=== PATIENT | female | born 1965 | race Caucasian/White ===

== ENCOUNTER → 2018-04-04 | Outpatient (CLI) | payer BC ==
[2018-04-04 12:48] LABS: BASO # 0.1 10^3/uL (0.0-0.2); BASO % 0.7 % (0.0-1.0); EOS # 0.3 10^3/uL (0.0-0.50); EOS % 4.3 % (0.0-3.0); HEMATOCRIT 45.9 % (36.0-47.0); HEMOGLOBIN 15.3 g/dl (12.0-15.5); IMMATURE GRANULOCYTE % 0.7 % (0-3.0); LYMPH # 2.2 10^3/uL (1.5-4.5); MEAN CORPUSCULAR HEMOGLOBIN 29.2 pg (27.0-33.0); MEAN CORPUSCULAR HGB CONC 33.3 g/dl (32.0-36.5); MEAN CORPUSCULAR VOLUME 87.6 fl (80.0-96.0); MONO # 0.7 10^3/uL (0.0-0.8); MONO % 9.7 % (0.0-5.0); NEUTROPHILS # 4.2 10^3/uL (1.8-7.7); NEUTROPHILS % 55.6 % (36.0-66.0); PLATELET COUNT, AUTOMATED 323 10^3/uL (150-450); RED BLOOD COUNT 5.24 10^6/uL (4.00-5.40); RED CELL DISTRIBUTION WIDTH 14.2 % (11.5-14.5); WHITE BLOOD COUNT 7.5 10^3/uL (4.0-10.0)
[2018-04-04 13:30] LABS: FOLLICLE STIMULATING HORMONE 46.4 mIU/mL; LUTEINIZING HORMONE 19.5 mIU/mL
[2018-04-04 13:37] LABS: THYROID STIMULATING HORMONE 0.937 uIU/ML (0.358-3.740)
[2018-04-04 13:37] LABS: FREE T4 1.09 NG/DL (0.76-1.46)
== END ==
LOC: M WUC 10:27
DX: N95.0 Postmenopausal bleeding (principal)
CPT/HCPCS: 83001

== ENCOUNTER → 2018-08-23 | Outpatient (CLI) | payer BC ==
--- NOTE | 2018-08-23 09:59 | REP ---
LEFT HIP/AP PELVIS, THREE VIEWS: HISTORY: Pain. There is no acute fracture or dislocation. There is mild and moderate narrowing of the right and left hip joint spaces respectively. Osteophytes are present on the acetabulum. IMPRESSION: Degenerative change as described above. Electronically Signed by Bull Baron MD 08/23/2018 10:02 A
== END ==
LOC: M WUC 08:46
PROVIDERS: ATTEND Physician Assistant
DX: M25.552 Pain in left hip (principal)

== ENCOUNTER → 2018-08-23 | Outpatient (REF) | payer BC | LOC: M LAB REF 11:28 | PROVIDERS: ATTEND Physician Assistant | DX: R10.2 Pelvic and perineal pain (principal) ==

== ENCOUNTER 2018-09-18 20:21 | Emergency (ER) | payer BC ==
[~2018-09-18] VITALS: Ht 160 cm; Wt 84.1 kg
[2018-09-18] MEDS ORDERED: FURO20TA2 (20:33)
[2018-09-18] MEDS ORDERED: CYCL10TA (20:33)
[2018-09-18] MEDS ORDERED: ESOM40CA35 (20:33)
[2018-09-18] MEDS ORDERED: NORCO 5/325MG TABLET (BULK FOR ED) PO ONE (22:00)
[2018-09-18] MEDS ORDERED: NORCOTAB PO ×2 (22:02→22:04)
[2018-09-18 22:22] VITALS: BP 125/69
--- NOTE | 2018-09-19 02:16 | REP ---
Clinical: Trauma/injury left ankle Technique: AP, lateral, bilateral oblique views. Findings: No acute fracture or dislocation. Skeletal structures and joint spaces are intact and normal. Ankle mortise appears stable. No subcutaneous emphysema or radiodense foreign body. Impression: Normal left ankle radiograph series. Electronically Signed by Alonso Galvez MD 09/19/2018 02:07 A
== END 2018-09-18 23:15 | disposition home or self-care (01) ==
LOC: M ED 20:21
DX: S93.401A Sprain of unspecified ligament of right ankle, initial encounter (principal); X50.1XXA Overexertion from prolonged static or awkward postures, initial encounter; Y92.009 Unspecified place in unspecified non-institutional (private) residence as the place of occurrence of the external cause

== ENCOUNTER → 2019-01-01 | Outpatient (CLI) | payer BC ==
[~2019-01-01] MED LIST: CYCL10TA; ESOM40CA35; FURO20TA2; HYDR-3715 PO; ISOVUE-370 76% 100ML VIAL (Q9967) As Ordered ONE; READI-CAT 2 As Ordered ONE
--- NOTE | 2019-01-01 15:29 | REP ---
REASON FOR EXAM: Left lower quadrant pain. COMPARISON EXAMINATION: 01/06/2002 CONTRAST TODAY: 100 mL Isovue 370. A few scattered lung base patchy opacities have developed since the last examination, likely subsegmental atelectatic changes. There are no pleural or pericardial effusions. There is a tiny centimeter sized focal area of decreased density seen in the posterior segment of the right lobe of the liver having slightly higher than water Hounsfield unit readings likely a tiny hepatic cyst. There are no enhancing hepatic lesions. The gallbladder, spleen, pancreas, left adrenal gland, and right kidney are unremarkable. There is a tiny nonobstructing 5 mm sized calculus in the inferior pole of the left kidney, which a represents change from the prior exam. There is an oval-shaped 2 cm sized nodule in the right adrenal gland which represents a change from prior exam. This has consistently high Hounsfield unit readings, however, there are no precontrast images to review. The abdominal aorta and para-aortic regions are within normal limits. No free fluid or free air is seen in the abdomen. The bowel loops and their mesenteries are within normal limits. CT PELVIS: The bowel loops and their mesenteries are within normal limits. There is no mass or adenopathy. There is no free fluid or free air. Bone window technique throughout the exam shows spinal degenerative changes. IMPRESSION: 1. Likely small simple hepatic cyst, as described above. 2. Nonobstructing left nephrolith, as described above. 3. Likely benign right adrenal gland nodule, however, precontrast imaging recommended for accurate assessment of Hounsfield unit readings. 4. Possible uterine enlargement, but difficult to evaluate by CT. Consider pelvic ultrasound. 5. Likely scattered areas of focal subsegmental atelectatic change in the lung bases. 6. Other findings as described above. Electronically Signed by Quirino Sahni DO 01/01/2019 04:53 P
== END ==
LOC: M RAD 09:37
PROVIDERS: ATTEND Physician Assistant
DX: N20.0 Calculus of kidney (principal)
CPT/HCPCS: 74177; Q9967

== ENCOUNTER 2019-11-19 03:33 | Emergency (ER) | payer BC ==
[~2019-11-19] VITALS: Ht 162.6 cm; Wt 84.1 kg
[~2019-11-19 03:33] MED LIST changes: -ISOVUE-370 76% 100ML VIAL (Q9967) As Ordered ONE; -READI-CAT 2 As Ordered ONE
[2019-11-19] MEDS ORDERED: AZEL1SPR3 (03:40)
[2019-11-19] MEDS ORDERED: NEXI40CA (03:40)
[2019-11-19] MEDS ORDERED: PROG1CAP9 (03:40)
[2019-11-19] MEDS ORDERED: ONDANSETRON 4MG/2ML VIAL (J2405) IV ONE ×2 (03:45→04:45)
[2019-11-19] MEDS ORDERED: KETOROLAC 30 MG/ML VIAL (J1885) IV ONE (03:45)
[2019-11-19 04:10] LABS: BASO # 0.1 10^3/uL (0.0-0.2); BASO % 0.7 % (0.0-1.0); EOS # 0.3 10^3/uL (0.0-0.5); EOS % 3.5 % (0.0-3.0); HEMATOCRIT 46.1 % (36.0-47.0); LYMPH # 2.4 10^3/uL (1.5-5.0); LYMPH % 29.6 % (24.0-44.0); MEAN CORPUSCULAR HEMOGLOBIN 28.8 pg (27.0-33.0); MEAN CORPUSCULAR HGB CONC 32.5 g/dl (32.0-36.5); MEAN CORPUSCULAR VOLUME 88.5 fl (80.0-96.0); MONO # 0.8 10^3/uL (0.0-0.8); MONO % 10.1 % (0.0-5.0); NEUTROPHILS # 4.6 10^3/uL (1.5-8.5); NEUTROPHILS % 55.6 % (36.0-66.0); PLATELET COUNT, AUTOMATED 338 10^3/uL (150-450); RED BLOOD COUNT 5.21 10^6/uL (4.00-5.40); WHITE BLOOD COUNT 8.2 10^3/uL (4.0-10.0)
[2019-11-19] MEDS: MORPHINE 4 MG/ML 1ML VIAL/SYRINGE (J2270) IV PRN ×2 (04:51→06:17)
[2019-11-19 05:08] LABS: ALBUMIN 3.7 GM/DL (3.2-5.2); BILIRUBIN,DIRECT 0.1 MG/DL (0.0-0.2); BILIRUBIN,TOTAL 0.3 MG/DL (0.2-1.0); TOTAL PROTEIN 7.2 GM/DL (6.4-8.2)
--- NOTE | 2019-11-19 05:34 | REPVR ---
PROCEDURE INFORMATION: Exam: CT Abdomen And Pelvis Without Contrast Exam date and time: 11/19/2019 5:11 AM Age: 54 years old Clinical indication: Abdominal pain; Additional info: Left sided flank pain TECHNIQUE: Imaging protocol: Computed tomography of the abdomen and pelvis without contrast. Radiation optimization: All CT scans at this facility use at least one of these dose optimization techniques: automated exposure control; mA and/or kV adjustment per patient size (includes targeted exams where dose is matched to clinical indication); or iterative reconstruction. COMPARISON: CT ABD/PEL W/IV ORAL CONTRAS 01/01/2019 11:57 AM FINDINGS: Lungs: Mild linear atelectasis in the lung bases. Liver: Subtle ill-defined hypodense lesion in the right hepatic lobe measuring 15 mm. Series 201, image 42. Gallbladder and bile ducts: Normal. No calcified stones. No ductal dilation. Pancreas: Normal. No ductal dilation. Spleen: Normal. No splenomegaly. Adrenals: Benign-appearing low-density nodule in the right adrenal gland measuring 2.1 x 1.4 cm. Left adrenal gland is unremarkable. Kidneys and ureters: No right hydronephrosis. Mild left hydronephrosis. Stone in the left proximal left ureter measuring 4 x 4 x 9 mm. Stomach and bowel: Mild colonic diverticulosis without diverticulitis. Copious stool in the colon. No abnormal bowel dilatation. No abnormal bowel wall thickening. Appendix: The appendix is not seen. However, there is no evidence of appendicitis. Intraperitoneal space: Unremarkable. No free air. No significant fluid collection. Vasculature: No aortic aneurysm. Mild calcified atherosclerotic disease. Multiple phleboliths in the pelvis. Lymph nodes: Unremarkable. No enlarged lymph nodes. Bladder: Unremarkable as visualized. Reproductive: Uterus is normal. Bones/joints: Mild degenerative spine. No acute fracture. Soft tissues: Unremarkable. IMPRESSION: 1. Acute obstructive left uropathy with proximal ureteral stone. 2. Subtle ill-defined hypodense lesion in the right hepatic lobe. No change from prior. Suspect cyst. No follow-up is necessary. 3. Benign-appearing nodule in the right adrenal gland. Consistent with adenoma. No follow-up is necessary. 4. Additional findings as described. Electronically signed by: Brittany Pepe On 11/19/2019 05:33:54 AM
[2019-11-19] MEDS ORDERED: FLOM0.4C39 PO (06:39)
[2019-11-19] MEDS ORDERED: PERC5TAB12 PO (06:39)
[2019-11-19] MEDS ORDERED: TAMSULOSIN 0.4 MG CAP PO ONE (06:45)
[2019-11-19] MEDS ORDERED: CIPR-249 PO (09:05)
[2019-11-19 09:13] VITALS: BP 112/66
[2019-11-19] MEDS ORDERED: PERCOCET 5MG/325MG TAB PO ONE (09:15)
== END 2019-11-19 09:15 | disposition home or self-care (01) ==
LOC: M ED 03:33
DX: N20.1 Calculus of ureter (principal); N13.9 Obstructive and reflux uropathy, unspecified; K76.89 Other specified diseases of liver; E27.9 Disorder of adrenal gland, unspecified; Z87.442 Personal history of urinary calculi; Z79.899 Other long term (current) drug therapy; Z88.0 Allergy status to penicillin; Z88.2 Allergy status to sulfonamides; Z88.8 Allergy status to other drugs, medicaments and biological substances; Z91.040 Latex allergy status; Z91.030 Bee allergy status
CPT/HCPCS: 74176; 80047; 80076; 81001; 83690; 85025; 87086; 96374; 96375; 96376; 99284; J1885; J2270; J2405

== ENCOUNTER 2019-11-26 14:21 | Day surgery (SDC) | payer BC ==
[~2019-11-26] VITALS: Ht 162.6 cm; Wt 108.9 kg
[~2019-11-26 14:21] MED LIST changes: +AZEL1SPR3; +CIPR-249 PO; +FLOM0.4C39 PO; +NEXI40CA; +PERC5TAB12 PO; +PROG1CAP9
[2019-11-26] MEDS ORDERED: CVS1CAP2 PO (14:51)
[2019-11-26] MEDS ORDERED: COLA100C5 PO (14:51)
[2019-11-26] MEDS ORDERED: ADV100INH INH (14:51)
[2019-11-26] MEDS ORDERED: MAGN200T PO (14:51)
[2019-11-26] MEDS ORDERED: CALT1TAB PO (14:51)
[2019-11-26] MEDS ORDERED: OMEP20TA9 PO (14:51)
[2019-11-26] MEDS ORDERED: ALL10TAB2 PO (14:51)
[2019-11-26] MEDS ORDERED: CIPROFLOXACIN 400 MG in IV 1 EA IV ONE (15:00)
[2019-11-26] MEDS ORDERED: CONRAY-60 60% 50ML VIAL (Q9961) As Ordered ONE (16:16)
[2019-11-26] MEDS ORDERED: propofoL 200 MG/20 ML VIAL As Ordered ONE (17:35)
[2019-11-26] MEDS ORDERED: LIDOCAINE 2% INJ 100 MG/5 ML SDV (FOR ANES.) As Ordered ONE (17:36)
[2019-11-26] MEDS ORDERED: MIDAZOLAM INJ 2 MG/2 ML VIAL (J2250) As Ordered ONE (17:37)
[2019-11-26] MEDS ORDERED: fentaNYL 100 MCG/2 ML INJECTION (J3010) As Ordered ONE (17:57)
[2019-11-26] MEDS ORDERED: dexameTHASONE 4 MG/ML 1ML VIAL (J1100) As Ordered ONE (18:07)
[2019-11-26] MEDS ORDERED: ONDANSETRON 4MG/2ML VIAL (J2405) As Ordered ONE ×2 (18:07→18:51)
[2019-11-26] MEDS ORDERED: oxyCODONE 5MG TAB As Ordered ONE (18:52)
[2019-11-26] MEDS ORDERED: ACETAMINOPHEN 1000MG 100ML IV BTL (OFIRMEV) (J0131 PER 10MG) As Ordered ONE (18:52)
--- NOTE | 2019-11-26 18:53 | REP ---
Clinical: Retrograde pyelogram. Technique: Intraoperative fluoroscopic imaging. Findings: Images demonstrate satisfactory left ureteral stent placement. Total fluoroscopic time 20 seconds. Impression: Satisfactory left ureteral stent placement. Electronically Signed by Alonso Galvez MD 11/26/2019 06:44 P
[2019-11-26] MEDS ORDERED: HYDROMORPHONE HCL 0.5 MG/ 0.5 ML SYRINGE (J1170 PER 1) IV PRN ×2 (19:00→20:15)
[2019-11-26] MEDS ORDERED: ONDANSETRON 4MG/2ML VIAL (J2405) IV PRN ×2 (19:00→20:15)
[2019-11-26] MEDS ORDERED: oxyCODONE 5MG TAB PO PRN ×2 (19:00→20:15)
[2019-11-26] MEDS ORDERED: LR 1,000 ML IV SCH ×2 (19:00→20:15)
[2019-11-26] MEDS ORDERED: fentaNYL 100 MCG/2 ML INJECTION (J3010) IV PRN ×2 (19:00→20:15)
[2019-11-26 19:46] VITALS: BP 139/88
[2019-11-26] MEDS ORDERED: ACETAMINOPHEN *IV* 1,000 MG in IV 1 EA IV ONE (20:00)
[2019-11-26] MEDS ORDERED: PERCOCET 5MG/325MG TAB PO PRN (20:01)
[2019-11-26] MEDS ORDERED: oxyBUTYnin 5 MG TAB PO PRN (20:01)
--- NOTE | 2019-11-27 08:22 | RO ---
DATE OF PROCEDURE: 11/26/2019 PREPROCEDURE DIAGNOSIS: Obstructing left ureteral stone. POSTPROCEDURE DIAGNOSIS: Obstructing left ureteral stone. PROCEDURE: Cystoscopy, left ureteroscopy with laser lithotripsy and basket extraction of stones, left retrograde pyelogram with intraoperative interpretation of images, left ureteral stent placement. SURGEON: Dr. Cruz Millard REEL FED PRINTER: None. ANESTHESIA: General. OPERATIVE INDICATIONS: This is a 54-year-old female who was found to have an approximately 9.0 mm obstructing proximal left ureteral stone. She was brought to the operating room for treatment. DESCRIPTION OF PROCEDURE: The patient was brought to the operating room, and general anesthesia was induced. Prophylactic antibiotics were infused. She was then placed in the dorsal lithotomy position and prepped and draped in the usual sterile fashion. A rigid cystoscope was inserted into the urethral meatus and advanced into the bladder. A guidewire was advanced up the left collecting system. I then went up the left collecting system with a short semirigid ureteroscope and within the proximal ureter the stone was seen. The stone was fragmented into smaller pieces using a 200 micron laser fiber then all the fragments were removed using a basket. I then examined the more proximal ureter and the kidney with a flexible ureteroscope and no stones were seen inside the left kidney. I then shot a retrograde pyelogram which was notable for moderate left hydronephrosis and no extravasation. I then looked through the ureteroscope and there were no additional stones seen inside the ureter. I then utilized the wire to advance a 6 Latvian x 22-32 cm JJ ureteral stent into the left collecting system. The wire was removed and there was adequate curls of the stent in the left renal pelvis and in the bladder. The bladder was then emptied of all fluids, and this marked the conclusion of the procedure. The patient was then taken out dorsal lithotomy position, awakened from anesthesia and transferred from the recovery room in stable condition. ESTIMATED BLOOD LOSS: 5 mL. COMPLICATIONS: None. SPECIMENS: Kidney stone fragments. PLAN: The patient will followup in the clinic in approximately 1-2 weeks for stent removal.
== END 2019-11-26 20:44 | disposition home or self-care (01) ==
LOC: M SDC 14:21
PROVIDERS: ATTEND Urology
DX: N13.2 Hydronephrosis with renal and ureteral calculous obstruction (principal); J45.909 Unspecified asthma, uncomplicated; K21.9 Gastro-esophageal reflux disease without esophagitis; Z79.899 Other long term (current) drug therapy; Z79.51 Long term (current) use of inhaled steroids; Z91.013 Allergy to seafood; Z88.0 Allergy status to penicillin; Z91.041 Radiographic dye allergy status; Z88.2 Allergy status to sulfonamides; Z88.6 Allergy status to analgesic agent; Z88.1 Allergy status to other antibiotic agents
CPT/HCPCS: 52356; 74420; 82365; 88300; C1769; C2617; J0131; J0744; J1100; J2250; J2405; J3010; Q9961

== ENCOUNTER → 2019-12-07 | Outpatient (REF) | payer BC ==
[~2019-12-07] MED LIST changes: +ADV100INH INH; +ALL10TAB2 PO; +CALT1TAB PO; +COLA100C5 PO; +CVS1CAP2 PO; +MAGN200T PO; +OMEP20TA9 PO
== END ==
LOC: M SMT 16:46
PROVIDERS: ATTEND Urology
DX: N39.0 Urinary tract infection, site not specified (principal)

== ENCOUNTER 2021-06-01 14:19 | Inpatient (IN) | payer BC ==
[~2021-06-01] VITALS: Ht 162.6 cm; Wt 84.1 kg
[~2021-06-01 14:19] MED LIST changes: +CYCL-707; -CYCL10TA; -FURO20TA2; +FURO20TA2 PO; +OMEP20TA2 PO; -OMEP20TA9 PO
[2021-06-01] MEDS ORDERED: methylPREDNISolone 125MG 2ML VIAL IV ONE (15:05)
[2021-06-01 15:23] LABS: HEMATOCRIT 43.1 % (36.0-47.0); HEMOGLOBIN 13.9 g/dl (12.0-15.5); MEAN CORPUSCULAR HEMOGLOBIN 28.3 pg (27.0-33.0); MEAN CORPUSCULAR HGB CONC 32.3 g/dl (32.0-36.5); MEAN CORPUSCULAR VOLUME 87.6 fl (80.0-96.0); PLATELET COUNT, AUTOMATED 203 10^3/uL (150-450); RED BLOOD COUNT 4.92 10^6/uL (4.00-5.40); WHITE BLOOD COUNT 4.5 10^3/uL (4.0-10.0)
[2021-06-01 15:28] LABS: VENOUS BASE EXCESS 1.5 (-2.0-2.0); VENOUS HCO3 25.7 MEQ/L (23.0-27.0); VENOUS PARTIAL PRESSURE CO2 39.2 mmHg (38.0-50.0); VENOUS PARTIAL PRESSURE O2 51.3 mmHg (30.0-50.0); VENOUS PH 7.435 UNITS (7.330-7.430); VENOUS STANDARD HCO3 25.6 MEQ/L; VENOUS TOTAL CO2 26.9 MEQ/L (24.0-28.0)
[2021-06-01 15:33] LABS: INR 0.95; PROTHROMBIN TIME 13.1 SECONDS (12.7-14.5)
[2021-06-01 15:34] LABS: PARTIAL THROMBOPLASTIN TIME 44.4 SECONDS (25.9-37.0)
[2021-06-01 15:37] LABS: D-DIMER QUANT 901.07 ng/ml (<500)
[2021-06-01 15:52] LABS: ALBUMIN 2.9 GM/DL (3.2-5.2); ALT/SGPT 45 U/L (12-78); BILIRUBIN,TOTAL 0.4 MG/DL (0.2-1.0); BLOOD UREA NITROGEN 16 MG/DL (7-18); C REACTIVE PROTEIN QUANTITATIV 3.26 MG/DL (0.00-0.30); CARBON DIOXIDE LEVEL 28 MEQ/L (21-32); CHLORIDE LEVEL 103 MEQ/L (98-107); CK-MB VALUE MASS < 1.0 NG/ML (<3.6); CPK CREATINE PHOSPHOKINASE 210 U/L (26-192); FERRITIN 509 NG/ML (8-252); GLOMERULAR FILTRATION RATE 54.9 (>51); GLUCOSE, FASTING 121 MG/DL (70-100); LDH LACTATE DEHYDROGENASE 487 U/L (84-246); MB/CK RELATIVE INDEX 0.48 (< OR =4); SODIUM LEVEL 137 MEQ/L (136-145); TOTAL PROTEIN 6.6 GM/DL (6.4-8.2); TROPONIN I < 0.02 NG/ML (< 0.10)
--- NOTE | 2021-06-01 16:01 | REP ---
INDICATION: Coronavirus workup. COMPARISON: 05/08/2013 a portable exam and the latest prior TECHNIQUE: Portable FINDINGS: The technique utilized in obtaining the radiograph has magnified the cardiac silhouette and accentuated the interstitial markings. Patchy bilateral airspace opacities have developed particularly on the left. The pleural angles are sharp the heart is not enlarged. The osseous structures are stable and intact IMPRESSION: Patchy bilateral airspace opacities consistent with pneumonia. Consider PA and lateral views of the chest. <Electronically signed by Quirino Sahni > 06/01/21 [id number]
[2021-06-01 16:10] LABS: BASOPHILS 1 % (0-1); LYMPHOCYTES 19 % (16-44); MONOCYTES 4 % (0-5); NEUTROPHILS 76 % (28-66); PLATELET ESTIMATE NORMAL (NORMAL)
[2021-06-01] MEDS ORDERED: LevoFLOXacin IV 750 MG in IV 1 EA IV ONE (16:30)
[2021-06-01] MEDS ORDERED: CITA20TA6 PO (17:26)
[2021-06-01] MEDS ORDERED: HOME MED LIST COMPLETE! XX SCH (17:30)
[2021-06-01] MEDS ORDERED: ALBUTEROL 90 MCG/ACT 8GM HFA INHALER INH PRN (17:30)
--- NOTE | 2021-06-01 17:44 | HPEPDOC ---
General Date of Admission Jun 01, 2021 Date of Service: Jun 01, 2021 Chief Complaint The patient is a 55-year-old female admitted with a reason for visit of Covid Symptoms. Source: Patient History of Present Illness Mrs. Lozano is a 55-year-old female with asthma who presents with malaise, fever, and shortness of breath. She received the single dose Anirudh & Anirudh vaccine. Her mother was recently positive for Covid. On 05/26/2021, patient started to feel ill. She went to urgent care and was tested positive for Covid. She had fever, shortness of breath with exertion, dry cough, headache, and loss of taste and smell. Her appetite was poor. She also had diarrhea which ranged from watery to semisolid. She would have 2-3 bowel movements a day. Symptoms were worsening and she came into the ED for evaluation. While here, she has been afebrile but she did become hypoxic with exertion. When sitting up, she dropped to the high 80s and with ambulation she drops into the 70s. Chest x-ray suggests bilateral pneumonia. Due to patient's allergies to penicillins, patient was given levofloxacin. Patient will be admitted for Covid pneumonia with exertional hypoxia Home Medications Scheduled Cetirizine HCl (All Day Allergy) 10 Mg Tablet, 10 MG PO DAILY, (Reported) Citalopram Hydrobromide (Citalopram HBr) 20 Mg Tablet, 20 MG PO DAILY, (Reported) Omeprazole (Omeprazole) 20 Mg Tablet.dr, 20 MG PO DAILY, (Reported) Salmeterol/Fluticasone (Advair 100-50 Diskus) 1 Each Blst.w.dev, 2 PUFF INH BID, (Reported) Miscellaneous Medications Furosemide (Furosemide) 20 Mg Tab, (Reported) Allergies Coded Allergies: Penicillins (Verified Allergy, Severe, 11/19/19) SEAFOOD (Verified Allergy, Severe, 11/19/19) Sulfa (Sulfonamide Antibiotics) (Verified Allergy, Severe, 11/19/19) nitrofurantoin (Verified Allergy, Severe, 11/19/19) Contrast Media (Verified Allergy, Unknown, 09/18/18) aspirin (Verified Allergy, Unknown, 11/19/19) Past Medical History Medical History 1. Asthma 2. GERD 3. Seasonal allergies 4. Nephrolithiasis 5. Depression Surgical History 1. Appendectomy 2. Tonsillectomy 3. Ulnar nerve repair 4. Laminectomy 5. Tube ligation Family History Father: History of hypertension Mother: History of hypertension Social History * Smoker: Denies Alcohol: occationally Drugs: denies A-FIB/CHADSVASC A-FIB History Current/History of A-Fib/PAF?: No Review of Systems Constitutional: Reports: Fever, Malaise; Denies: Chills Eyes: Denies: Vision change ENT: Reports: Head Aches; Denies: Sore Throat Skin: Denies: Rash Pulmonary: Reports: Dyspnea (Worse with exertion), Cough (Dry) Cardiovascular: Denies: Chest Pain Gastrointestinal: Reports: Diarrhea, Other Symptoms (Loss of taste and poor appetite); Denies: Nausea, Abdominal Pain Genitourinary: Denies: Dysuria Hematologic: Denies: Bruising Neurological: Denies: Numbness Psych: Reports: Depression Physical Examination General Exam: Positive: Alert, Cooperative Eye Exam: Positive: EOMI; Negative: Sclera icteric ENT Exam: Positive: Atraumatic Neck Exam: Positive: Supple Chest Exam: Positive: Other (Coarse breath sound) Heart Exam: Positive: Tachycardic, Regular Rhythm Abdomen Exam: Positive: Normal bowel sounds, Soft; Negative: Tenderness Extremity Exam: Negative: Edema Neuro Exam: Positive: Normal Speech Psych Exam: Positive: Mental status NL, Mood NL Vital Signs Vital Signs Date Time Temp Pulse Resp B/P (MAP) Pulse Ox O2 Delivery O2 Flow Rate FiO2 06/01/21 14:20 97.0 104 26 128/67 (87) 90 Room Air Laboratory Data Labs 24H Laboratory Tests 2 06/01/21 15:09: Neutrophils (%) (Auto) , Nucleated Red Blood Cells % (auto) 0.0, Neutrophils 76H, Lymphocytes (Manual) 19, Monocytes (Manual) 4, Basophils (Manual) 1, Platelet Estimate NORMAL, Prothrombin Time 13.1, Prothromb Time International Ratio 0.95, Activated Partial Thromboplast Time 44.4H, Fibrinogen 509H, D-Dimer, Quantitative 901.07H, Blood Gas Bicarbonate Standard 25.6, Venous Blood pH 7.435H, Venous Blood Partial Pressure CO2 39.2, Venous Blood Partial Pressure O2 51.3H, Venous Blood Total Carbon Dioxide 26.9, Venous Blood HCO3 25.7, Venous Blood Oxygen Saturation 87.0H, Venous Blood Base Excess 1.5, Anion Gap 6L, Glomerular Filtration Rate 54.9, Lactic Acid Level 1.2, Calcium Level 8.0L, Magnesium Level 2.0, Ferritin 509H, Total Bilirubin 0.4, Aspartate Amino Transf (AST/SGOT) 56H, Alanine Aminotransferase (ALT/SGPT) 45, Alkaline Phosphatase 55, Lactate Dehydrogenase 487H, Total Creatine Kinase 210H, Creatine Kinase MB < 1.0, Creatine Kinase MB Relative Index 0.48, Troponin I < 0.02, C-Reactive Protein, Quantitative 3.26H, Total Protein 6.6, Albumin 2.9L, Albumin/Globulin Ratio 0.8L CBC/BMP Laboratory Tests 06/01/21 15:09 Microbiology Microbiology 06/01/21 Blood Culture, Received Pending 06/01/21 Blood Culture, Received Pending Assessment/Plan Mrs. Lozano is a 55-year-old female with asthma who presents with malaise, fever, and shortness of breath. Despite the single dose Anirudh & Anirudh vaccine, patient still had Covid pneumonia. Patient will be given remdesivir, steroids, and antibiotics. Will obtain procalcitonin. Plan / VTE VTE Prophylaxis Ordered?: Yes Plan Plan 1. Covid pneumonia Patient has hypoxia with exertion Patient risk factors include asthma Start remdesivir and dexamethasone Levofloxacin day 1 If renal function worsens, please switch levofloxacin from daily to every other day 2. Asthma Continue Advair As needed albuterol 3. Seasonal allergies Continue cetirizine 4. GERD Continue omeprazole 5. DVT prophylaxis Lovenox Patient has allergies to aspirin Disposition: Pending clinical improvement JASMINE HEWITT DO Jun 01, 2021 17:43
[2021-06-01 18:21] LABS: NT-PRO BNP 18 PG/ML (<125)
[2021-06-01] MEDS: ADVAIR HFA 45/21MCG INHALER INH SCH ×2 (20:00→21:10)
[2021-06-01 21:13] VITALS: BP 132/86
[2021-06-01] MEDS ORDERED: REMDESIVIR 200 MG in NS 250 ML IV ONE (22:00)
[2021-06-01] MEDS ORDERED: SODIUM CHLORIDE 0.9% INJ 10 ML SYR IV ONE (23:59)
[2021-06-02 00:10] LABS: APPEARANCE, URINE HAZY (CLEAR); BACTERIA, URINE AUTO 3+ (NEGATIVE); BILIRUBIN, URINE AUTO NEGATIVE (NEGATIVE); BLOOD, URINE BLOOD 1+ (NEGATIVE); COLOR, URINE YELLOW (YELLOW); GLUCOSE, URINE (UA) AUTO NEGATIVE (NEGATIVE); KETONE, URINE AUTO NEGATIVE (NEGATIVE); LEUKOCYTE ESTERASE, URINE AUTO NEGATIVE (NEGATIVE); MUCUS, URINE SMALL (NEGATIVE); NITRITE, URINE AUTO NEGATIVE (NEGATIVE); PROTEIN, URINE AUTO 3+ mg/dL (NEGATIVE); RBC, URINE AUTO 1 /HPF (0-3); SPECIFIC GRAVITY URINE AUTO 1.022 (1.002-1.035); SQUAMOUS EPITHELIAL CELL UR AU 1 /HPF (0-6); UROBILINOGEN, URINE AUTO 0.2 mg/dL (0.0-2.0); WBC, URINE AUTO 3 /HPF (0-3)
--- NOTE | 2021-06-02 04:57 | ECGEPIP ---
[facility] - ED Test Date: 2021-06-01 Pat Name: SAMANTHA GALLARDO Department: Room: - Gender: Female Assisted Living Executive Director: spencer : 1965 Requested By: Natanael Wayne Order Number: [id number] Reading MD: Lonnie Goncalves Measurements Intervals Hawley Rate: 92 P: 36 NE: 144 QRS: 28 QRSD: 80 T: 16 QT: 354 QTc: 437 Interpretive Statements Normal sinus rhythm Inferior infarct , age undetermined Low QRS complex voltage in the anterior leads Comparison tracing not on file Electronically Signed on 06-02-2021 4:57:26 EDT by Lonnie Goncalves
[2021-06-02 05:21] VITALS: BP 127/79
[2021-06-02 06:08] LABS: HEMATOCRIT 41.7 % (36.0-47.0); HEMOGLOBIN 13.3 g/dl (12.0-15.5); MEAN CORPUSCULAR HEMOGLOBIN 27.8 pg (27.0-33.0); MEAN CORPUSCULAR HGB CONC 31.9 g/dl (32.0-36.5); MEAN CORPUSCULAR VOLUME 87.2 fl (80.0-96.0); PLATELET COUNT, AUTOMATED 196 10^3/uL (150-450); RED BLOOD COUNT 4.78 10^6/uL (4.00-5.40); WHITE BLOOD COUNT 3.7 10^3/uL (4.0-10.0)
[2021-06-02 06:39] LABS: ALBUMIN 2.7 GM/DL (3.2-5.2); BILIRUBIN,DIRECT 0.1 MG/DL (0.0-0.2); BILIRUBIN,TOTAL 0.3 MG/DL (0.2-1.0); CALCIUM LEVEL 8.4 MG/DL (8.5-10.1); CREATININE FOR GFR 1.03 MG/DL (0.55-1.30); GLOMERULAR FILTRATION RATE 59.2 (>51); MAGNESIUM LEVEL 2.3 MG/DL (1.8-2.4); POTASSIUM SERUM 3.9 MEQ/L (3.5-5.1)
[2021-06-02 07:12] LABS: ATYPICAL LYMPH 2 % (0-5); LYMPHOCYTES 18 % (16-44); MONOCYTES 6 % (0-5); NEUTROPHILS 74 % (28-66)
[2021-06-02 07:13] LABS: PLATELET ESTIMATE NORMAL (NORMAL)
[2021-06-02 08:00] VITALS: O2SAT 92
[2021-06-02] MEDS: ADVAIR HFA 45/21MCG INHALER INH SCH ×2 (08:22→19:34)
[2021-06-02] MEDS: CETIRIZINE (ZyrTEC) 10 MG TAB PO SCH (09:09)
[2021-06-02] MEDS: OMEPRAZOLE 20 MG CAP PO SCH (09:09)
[2021-06-02] MEDS: CitaloPRAM (CeleXA) 20 MG TAB PO SCH (09:09)
[2021-06-02] MEDS: dexameTHASONE 4 MG/ML 1ML VIAL (J1100 PER 1MG) IV SCH (09:10)
[2021-06-02] MEDS: ENOXAPARIN 40MG/0.4ML SYRINGE (J1650 PER 10MG) SC SCH (09:10)
[2021-06-02 12:00] VITALS: O2SAT 92
--- NOTE | 2021-06-02 13:05 | IPN ---
PROGRESS NOTE DATE: 06/02/2021 SUBJECTIVE: Patient complains of generalized weakness, some shortness of breath with ambulation, saturating 87% on 3 liters nasal cannula. OBJECTIVE: VITAL SIGNS: Temperature is 95.4, pulse 63, sinus, respiratory rate is 18, blood pressure is 127/79, 93% on 4 liters nasal cannula. GENERAL: Awake, alert and oriented, no distress. CHEST: No use of respiratory accessory muscles or cyanosis. NECK: No JVD or thyromegaly. LUNGS: Diminished breath sounds, coarse rhonchi. HEART: S1 and S2, sinus. ABDOMEN: Soft, nontender and nondistended. Positive bowel sounds. EXTREMITIES: No pitting edema. LABORATORY DATA/IMAGING STUDIES/MICROBIOLOGY: Have been reviewed. ASSESSMENT AND PLAN: A 55-year-old with Coronavirus, asthma, reflux disease. CURRENT ISSUES: 1. Coronavirus pneumonia, currently with significant hypoxia requiring supplemental oxygen on Remdesivir and Dexamethasone and Levaquin day #2. 2. Asthma, compensated on Advair and Albuterol p.r.n. 3. Seasonal allergies, on cetirizine. 4. GERD, on Prilosec. MTDD
[2021-06-02 14:00] VITALS: BP 120/63
[2021-06-02 16:00] VITALS: O2SAT 91
[2021-06-02] MEDS ORDERED: LevoFLOXacin IV 750 MG in IV 1 EA IV SCH (18:00)
[2021-06-02] MEDS: REMDESIVIR 100 MG in NS 250 ML IV SCH (19:58)
[2021-06-02 20:00] VITALS: BP 114/67; O2SAT 92
[2021-06-02] MEDS: SODIUM CHLORIDE 0.9% INJ 10 ML SYR IV SCH (22:35)
[2021-06-03 04:00] VITALS: O2SAT 92
[2021-06-03 04:30] VITALS: BP 111/75
[2021-06-03 06:35] LABS: BASO % 0.2 % (0.0-1.0); HEMATOCRIT 41.4 % (36.0-47.0); HEMOGLOBIN 13.2 g/dl (12.0-15.5); LYMPH # 1.2 10^3/uL (1.5-5.0); LYMPH % 18.1 % (24.0-44.0); MEAN CORPUSCULAR HGB CONC 31.9 g/dl (32.0-36.5); MEAN CORPUSCULAR VOLUME 87.9 fl (80.0-96.0); MONO # 0.5 10^3/uL (0.0-0.8); MONO % 8.1 % (2.0-8.0); NEUTROPHILS # 4.7 10^3/uL (1.5-8.5); NEUTROPHILS % 72.7 % (36.0-66.0); PLATELET COUNT, AUTOMATED 242 10^3/uL (150-450); RED BLOOD COUNT 4.71 10^6/uL (4.00-5.40); WHITE BLOOD COUNT 6.5 10^3/uL (4.0-10.0)
[2021-06-03 06:57] LABS: ALBUMIN 2.7 GM/DL (3.2-5.2); ALT/SGPT 34 U/L (12-78); BILIRUBIN,DIRECT 0.1 MG/DL (0.0-0.2); BILIRUBIN,TOTAL 0.3 MG/DL (0.2-1.0); BLOOD UREA NITROGEN 20 MG/DL (7-18); CARBON DIOXIDE LEVEL 31 MEQ/L (21-32); CHLORIDE LEVEL 104 MEQ/L (98-107); CPK CREATINE PHOSPHOKINASE 94 U/L (26-192); CREATININE FOR GFR 0.98 MG/DL (0.55-1.30); FERRITIN 321 NG/ML (8-252); GLOMERULAR FILTRATION RATE > 60.0 (>51); GLUCOSE, FASTING 187 MG/DL (70-100); LDH LACTATE DEHYDROGENASE 317 U/L (84-246); MAGNESIUM LEVEL 2.3 MG/DL (1.8-2.4); NT-PRO BNP 157 PG/ML (<125); POTASSIUM SERUM 4.3 MEQ/L (3.5-5.1); SODIUM LEVEL 140 MEQ/L (136-145); TOTAL PROTEIN 6.8 GM/DL (6.4-8.2); TROPONIN I < 0.02 NG/ML (< 0.10)
[2021-06-03 07:00] LABS: INR 1.13
[2021-06-03] MEDS: ADVAIR HFA 45/21MCG INHALER INH SCH ×2 (07:40→19:59)
[2021-06-03] MEDS: ENOXAPARIN 40MG/0.4ML SYRINGE (J1650 PER 10MG) SC SCH (09:09)
[2021-06-03] MEDS: OMEPRAZOLE 20 MG CAP PO SCH (09:10)
[2021-06-03] MEDS: CitaloPRAM (CeleXA) 20 MG TAB PO SCH (09:10)
[2021-06-03] MEDS: dexameTHASONE 4 MG/ML 1ML VIAL (J1100 PER 1MG) IV SCH (09:10)
[2021-06-03] MEDS: CETIRIZINE (ZyrTEC) 10 MG TAB PO SCH (09:10)
--- NOTE | 2021-06-03 10:09 | IPNPDOC ---
Date Seen The patient was seen on 06/03/21. Progress Note SUBJECTIVE: Patient has dyspnea and exertion with oxygen saturation decreasing to 83 to 85% on 3 L nasal cannula when moving from the bedroom to the bathroom and back. Patient recovers after about 1 minute up to 92 to 94% on 3 L nasal cannula. She denies any chest pain pressure tightness lightheadedness or dizziness. Patient is sense of taste and smell have returned. Appetite is still poor but tolerating her diet without nausea vomiting or abdominal pain. Patient is anxious to go home Since she has a wedding to planned for Tuesday. With increasing oxygen need, patient was advised to try prone positioning but she refuses saying that it is uncomfortable. OBJECTIVE: VITAL SIGNS: see below GENERAL: Able to complete her sentences without conversational dyspnea awake, alert and oriented, no distress. No use of respiratory accessory muscles or cyanosis. No pallor or icterus NECK: No JVD or thyromegaly. No carotid bruit LUNGS: Diminished breath sounds, coarse rhonchi. No stridor HEART: S1 and S2, sinus. ABDOMEN: Soft, nontender and nondistended. Positive bowel sounds. EXTREMITIES: No pitting edema. LABORATORY DATA/IMAGING STUDIES/MICROBIOLOGY: Have been reviewed. ASSESSMENT AND PLAN: A 55-year-old with Coronavirus, asthma, reflux disease. CURRENT ISSUES: Coronavirus pneumonia, currently with significant hypoxia requiring supplemental oxygen on Remdesivir and Dexamethasone and Levaquin day #3 Suspected secondary bacterial pneumonia. day #3 levaquin. Asthma, compensated on Advair and Albuterol p.r.n. Seasonal allergies, on cetirizine. GERD, on Prilosec. Acute hypoxic respiratory failure -requiring supplemental oxygen - secondary to coronavirus and suspected bacterial pneumonia -Supportive care with IV remdesivir for coronavirus Levaquin for bacterial pneumonia And supplemental oxygen to keep saturations above 90%. Disposition: 1 to 2 days pending clinical improvement VS, I&O, 24H, Fishbone Vital Signs/I&O Vital Signs Date Time Temp Pulse Resp B/P (MAP) Pulse Ox O2 Delivery O2 Flow Rate FiO2 06/03/21 04:30 96.7 67 16 111/75 (87) 92 Nasal Cannula 4.0 I&O- Last 24 Hours up to 6 AM 06/03/21 06:00 Intake Total 600 ml Output Total 650 ml Balance -50 ml Laboratory Data 24H LABS Laboratory Tests 2 06/02/21 21:20: Bedside Glucose (Misc Panel) 219H 06/03/21 05:45: Immature Granulocyte % (Auto) 0.9, Neutrophils (%) (Auto) 72.7H, Lymphocytes (%) (Auto) 18.1L, Monocytes (%) (Auto) 8.1H, Eosinophils (%) (Auto) 0.0, Basophils (%) (Auto) 0.2, Neutrophils # (Auto) 4.7, Lymphocytes # (Auto) 1.2L, Monocytes # (Auto) 0.5, Eosinophils # (Auto) 0.0, Basophils # (Auto) 0.0, Nucleated Red Blood Cells % (auto) 0.0, Prothrombin Time 15.0H, Prothromb Time International Ratio 1.13, Activated Partial Thromboplast Time 41.0H, Fibrinogen 475H, Anion Gap 5L, Glomerular Filtration Rate > 60.0, Calcium Level 9.0, Magnesium Level 2.3, Ferritin 321H, Total Bilirubin 0.3, Direct Bilirubin 0.1, Aspartate Amino Transf (AST/SGOT) 24, Alanine Aminotransferase (ALT/SGPT) 34, Alkaline Phosphatase 51, Lactate Dehydrogenase 317H, Total Creatine Kinase 94, Troponin I < 0.02, FC-[id number]-Type Natriuretic Peptide 157H, Total Protein 6.8, Albumin 2.7L, Albumin/Globulin Ratio 0.7L CBC/BMP Laboratory Tests 06/03/21 05:45 Microbiology Microbiology 06/01/21 Respiratory Virus Panel (PCR) ([facility]) - Final, Complete 06/01/21 Blood Culture - Preliminary, Resulted No growth after 24 hours . All specim... 06/01/21 Blood Culture - Preliminary, Resulted No growth after 24 hours . All specim... WILL OLMOS MD Jun 03, 2021 09:25
[2021-06-03 14:00] VITALS: BP 119/70
[2021-06-03 16:13] LABS: MYCOPLASMA PNEUMONIAE IgG 1021 U/mL (0-99); MYCOPLASMA PNEUMONIAE IgM <770 U/mL (0-769)
[2021-06-03 20:00] VITALS: BP 123/68
[2021-06-03] MEDS: REMDESIVIR 100 MG in NS 250 ML IV SCH (21:19)
[2021-06-03] MEDS: SODIUM CHLORIDE 0.9% INJ 10 ML SYR IV SCH (22:00)
[2021-06-04] VITALS: BP 127/84
[2021-06-04 04:00] VITALS: BP 136/85
[2021-06-04 05:58] LABS: BASO % 0.3 % (0.0-1.0); HEMOGLOBIN 12.2 g/dl (12.0-15.5); LYMPH # 1.2 10^3/uL (1.5-5.0); LYMPH % 19.2 % (24.0-44.0); MEAN CORPUSCULAR HEMOGLOBIN 28.1 pg (27.0-33.0); MEAN CORPUSCULAR HGB CONC 32.1 g/dl (32.0-36.5); MEAN CORPUSCULAR VOLUME 87.6 fl (80.0-96.0); MONO # 0.7 10^3/uL (0.0-0.8); MONO % 10.9 % (2.0-8.0); NEUTROPHILS # 4.2 10^3/uL (1.5-8.5); PLATELET COUNT, AUTOMATED 261 10^3/uL (150-450); RED BLOOD COUNT 4.34 10^6/uL (4.00-5.40); WHITE BLOOD COUNT 6.2 10^3/uL (4.0-10.0)
[2021-06-04 06:08] LABS: INR 1.11; PROTHROMBIN TIME 14.7 SECONDS (12.7-14.5)
[2021-06-04 06:09] LABS: PARTIAL THROMBOPLASTIN TIME 44.5 SECONDS (25.9-37.0)
[2021-06-04 06:33] LABS: ALBUMIN 2.6 GM/DL (3.2-5.2); ALT/SGPT 30 U/L (12-78); BILIRUBIN,DIRECT 0.1 MG/DL (0.0-0.2); BILIRUBIN,TOTAL 0.3 MG/DL (0.2-1.0); BLOOD UREA NITROGEN 22 MG/DL (7-18); CALCIUM LEVEL 8.4 MG/DL (8.5-10.1); CARBON DIOXIDE LEVEL 29 MEQ/L (21-32); CHLORIDE LEVEL 104 MEQ/L (98-107); CPK CREATINE PHOSPHOKINASE 53 U/L (26-192); CREATININE FOR GFR 0.96 MG/DL (0.55-1.30); FERRITIN 213 NG/ML (8-252); GLOMERULAR FILTRATION RATE > 60.0 (>51); GLUCOSE, FASTING 185 MG/DL (70-100); LDH LACTATE DEHYDROGENASE 266 U/L (84-246); MAGNESIUM LEVEL 2.3 MG/DL (1.8-2.4); NT-PRO BNP 209 PG/ML (<125); POTASSIUM SERUM 3.8 MEQ/L (3.5-5.1); SODIUM LEVEL 141 MEQ/L (136-145); TOTAL PROTEIN 6.4 GM/DL (6.4-8.2); TROPONIN I < 0.02 NG/ML (< 0.10)
[2021-06-04] MEDS: ADVAIR HFA 45/21MCG INHALER INH SCH (08:28)
[2021-06-04 08:31] VITALS: O2SAT 95
[2021-06-04] MEDS: OMEPRAZOLE 20 MG CAP PO SCH (09:57)
[2021-06-04] MEDS: CETIRIZINE (ZyrTEC) 10 MG TAB PO SCH (09:57)
[2021-06-04] MEDS: CitaloPRAM (CeleXA) 20 MG TAB PO SCH (09:57)
[2021-06-04] MEDS: dexameTHASONE 4 MG/ML 1ML VIAL (J1100 PER 1MG) IV SCH (09:57)
[2021-06-04] MEDS: ENOXAPARIN 40MG/0.4ML SYRINGE (J1650 PER 10MG) SC SCH (09:58)
[2021-06-04] MEDS ORDERED: LEVO750T14 PO (12:20)
[2021-06-04] MEDS ORDERED: PRED10TA2 PO (12:20)
--- NOTE | 2021-06-04 12:25 | DS.PDOC ---
Discharge Summary General Date of Admission Jun 01, 2021 at 17:19 Date of Discharge 06/04/21 Discharge Summary DISCHARGE DIAGNOSIS: CORONAVIRUS PNEUMONIA ACUTE HYPOXIC RESPIRATORY FAILURE 4 L OF OXYGEN via nasal cannula Asthma GERD Obesity DISCHARGE MEDICATIONS: SEE BELOW DISCHARGE INSTRUCTIONS: Continue with quarantine per infection control/public health recommendations Primary care physician appointment within 5 days of hospital discharge 4 L nasal cannula oxygen to keep saturations at 90% Hospital course: A 55-year-old with Coronavirus, asthma, reflux disease presented to the emergency room with several day history of worsening shortness of breath Cough decreased appetite loss of taste and smell found to be positive for coronavirus admitted for Covid pneumonia Coronavirus pneumonia, currently with significant hypoxia requiring supplemental oxygen on Remdesivir and Dexamethasone Suspected secondary bacterial pneumonia. Complete antibiotics for 7 days at home Asthma, compensated on Advair and Albuterol p.r.n. Seasonal allergies, on cetirizine. GERD, on Prilosec. Acute hypoxic respiratory failure -requiring supplemental oxygen - secondary to coronavirus and suspected bacterial pneumonia -Supportive care with IV remdesivir for coronavirus And supplemental oxygen to keep saturations above 90%. DISCHARGE PHYSICAL EXAM: VITAL SIGNS: see below GENERAL: Able to complete her sentences without conversational dyspnea awake, alert and oriented, no distress. No use of respiratory accessory muscles or cyanosis. No pallor or icterus NECK: No JVD or thyromegaly. No carotid bruit LUNGS: Diminished breath sounds, coarse rhonchi. No stridor HEART: S1 and S2, sinus. ABDOMEN: Soft, nontender and nondistended. Positive bowel sounds. EXTREMITIES: No pitting edema. LABORATORY DATA/IMAGING STUDIES/MICROBIOLOGY: Have been reviewed. TIME SPENT ON DISCHARGE: 30 MINUTES Vital Signs/I&Os Vital Signs Date Time Temp Pulse Resp B/P (MAP) Pulse Ox O2 Delivery O2 Flow Rate FiO2 06/04/21 08:31 95 Nasal Cannula 3.0 06/04/21 04:00 96.0 63 18 136/85 (102) I&O- Last 24 Hours up to 6 AM 06/04/21 06:00 Intake Total 780 ml Output Total 400 ml Balance 380 ml Laboratory Data Labs 24H Laboratory Tests 2 06/04/21 05:43: Immature Granulocyte % (Auto) 1.6, Neutrophils (%) (Auto) 68.0H, Lymphocytes (%) (Auto) 19.2L, Monocytes (%) (Auto) 10.9H, Eosinophils (%) (Auto) 0.0, Basophils (%) (Auto) 0.3, Neutrophils # (Auto) 4.2, Lymphocytes # (Auto) 1.2L, Monocytes # (Auto) 0.7, Eosinophils # (Auto) 0.0, Basophils # (Auto) 0.0, Nucleated Red Blood Cells % (auto) 0.0, Prothrombin Time 14.7H, Prothromb Time International Ratio 1.11, Activated Partial Thromboplast Time 44.5H, Anion Gap 8, Glomerular Filtration Rate > 60.0, Calcium Level 8.4L, Magnesium Level 2.3, Ferritin 213, Total Bilirubin 0.3, Direct Bilirubin 0.1, Aspartate Amino Transf (AST/SGOT) 16, Alanine Aminotransferase (ALT/SGPT) 30, Alkaline Phosphatase 46, Lactate Dehydrogenase 266H, Total Creatine Kinase 53, Troponin I < 0.02, PQ-Oix-R-Type Natriuretic Peptide 209H, Total Protein 6.4, Albumin 2.6L, Albumin/Globulin Ratio 0.7L, Procalcitonin <0.05 CBC/BMP Laboratory Tests 06/04/21 05:43 Microbiology Microbiology 06/01/21 Respiratory Virus Panel (PCR) ([facility]) - Final, Complete SARS-CoV-2 (COVID 19) 06/01/21 Blood Culture - Preliminary, Resulted No Growth after 48 hours. All Specime... 06/01/21 Blood Culture - Preliminary, Resulted No Growth after 48 hours. All Specime... Discharge Medications Scheduled Cetirizine HCl (All Day Allergy) 10 Mg Tablet, 10 MG PO DAILY, (Reported) Citalopram Hydrobromide (Citalopram HBr) 20 Mg Tablet, 20 MG PO DAILY, (Reported) Furosemide (Furosemide) 20 Mg Tab, 20 MG PO DAILY, (Reported) Omeprazole (Omeprazole) 20 Mg Tablet.dr, 20 MG PO DAILY, (Reported) Prednisone (Prednisone) 10 Mg Tablet, 10 MG PO TAPER Take 4 tabs daily x 3 days, then 3 tabs daily x 3 days, then 2 tabs daily x 3 days, then 1 tab daily x 3 days and stop Salmeterol/Fluticasone (Advair 100-50 Diskus) 1 Each Blst.w.dev, 2 PUFF INH BID, (Reported) levoFLOXacin (levoFLOXacin) 750 Mg Tablet, 750 MG PO DAILY Allergies Coded Allergies: Penicillins (Verified Allergy, Severe, 11/19/19) SEAFOOD (Verified Allergy, Severe, 11/19/19) Sulfa (Sulfonamide Antibiotics) (Verified Allergy, Severe, 11/19/19) nitrofurantoin (Verified Allergy, Severe, 11/19/19) Contrast Media (Verified Allergy, Unknown, 09/18/18) aspirin (Verified Allergy, Unknown, 11/19/19) WILL OLMOS MD Jun 04, 2021 12:25
== END 2021-06-04 16:20 | disposition home health service (06) | DRG 137 ==
LOC: M ED 14:19 → M ED INP 17:19 → M 4MAIN 21:04
PROVIDERS: ADMIT Internal Medicine; ATTEND General Practice
DX: U07.1 COVID-19 (principal); J96.01 Acute respiratory failure with hypoxia; J12.82 Pneumonia due to coronavirus disease 2019; J45.909 Unspecified asthma, uncomplicated; K21.9 Gastro-esophageal reflux disease without esophagitis; E66.9 Obesity, unspecified; Z79.899 Other long term (current) drug therapy; Z91.041 Radiographic dye allergy status; Z88.0 Allergy status to penicillin; Z91.018 Allergy to other foods; Z88.2 Allergy status to sulfonamides; Z88.8 Allergy status to other drugs, medicaments and biological substances

== ENCOUNTER 2022-12-01 22:02 | Emergency (ER) | payer BC ==
[~2022-12-01] VITALS: Ht 162.6 cm; Wt 90.9 kg
[~2022-12-01 22:02] MED LIST changes: +CITA20TA6 PO; +LEVO750T14 PO; +PRED10TA2 PO
[2022-12-01 22:43] LABS: BASO # 0.1 10^3/uL (0.0-0.2); BASO % 0.7 % (0.0-1.0); EOS # 0.1 10^3/uL (0.0-0.5); EOS % 1.4 % (0.0-3.0); HEMATOCRIT 41.5 % (36.0-47.0); HEMOGLOBIN 13.5 g/dl (12.0-15.5); LYMPH % 46.4 % (24.0-44.0); MEAN CORPUSCULAR HEMOGLOBIN 29.1 pg (27.0-33.0); MEAN CORPUSCULAR HGB CONC 32.5 g/dl (32.0-36.5); MEAN CORPUSCULAR VOLUME 89.4 fl (80.0-96.0); MONO # 0.7 10^3/uL (0.0-0.8); MONO % 8.2 % (2.0-8.0); NEUTROPHILS # 3.6 10^3/uL (1.5-8.5); NEUTROPHILS % 42.5 % (36.0-66.0); PLATELET COUNT, AUTOMATED 384 10^3/uL (150-450); RED BLOOD COUNT 4.64 10^6/uL (4.00-5.40); WHITE BLOOD COUNT 8.5 10^3/uL (4.0-10.0)
[2022-12-01] MEDS ORDERED: methylPREDNISolone 125MG 2ML VIAL IV ONE (23:00)
[2022-12-01] MEDS ORDERED: diphenhydrAMINE 50MG/ML VIAL IV ONE (23:00)
[2022-12-01 23:01] LABS: LIPASE 62 U/L (12-53)
[2022-12-01 23:02] LABS: CPK CREATINE PHOSPHOKINASE 125 U/L (34-145)
[2022-12-01 23:03] LABS: ALBUMIN 3.7 G/DL (3.2-5.2); ALKALINE PHOSPHATASE 78 U/L (46-116); ALT/SGPT 14 U/L (7.0-40); AST/SGOT 20 U/L (<34); BILIRUBIN,DIRECT < 0.1 MG/DL (<0.4); BILIRUBIN,TOTAL 0.3 MG/DL (0.3-1.2); BLOOD UREA NITROGEN 23 MG/DL (9-23); CARBON DIOXIDE LEVEL 31 MMOL/L (20-31); CHLORIDE LEVEL 104 MMOL/L (98-107); CREATININE FOR GFR 1.07 MG/DL (0.55-1.30); GLOMERULAR FILTRATION RATE 56.3 (>51); GLUCOSE, FASTING 122 MG/DL (60-100); SODIUM LEVEL 140 MMOL/L (136-145); TOTAL PROTEIN 6.5 G/DL (5.7-8.2)
[2022-12-02 01:00] VITALS: BP 122/67
== END 2022-12-02 01:31 | disposition home or self-care (01) ==
LOC: M ED 22:02
DX: T48.5X5A Adverse effect of other anti-common-cold drugs, initial encounter (principal); R07.89 Other chest pain; J45.909 Unspecified asthma, uncomplicated; K21.9 Gastro-esophageal reflux disease without esophagitis; F32.9 Major depressive disorder, single episode, unspecified; Z79.899 Other long term (current) drug therapy; Z88.0 Allergy status to penicillin; Z88.2 Allergy status to sulfonamides; Z88.8 Allergy status to other drugs, medicaments and biological substances; Z91.041 Radiographic dye allergy status; Z91.013 Allergy to seafood
CPT/HCPCS: 71045; 80048; 80076; 82550; 82553; 83690; 83880; 84443; 84484; 85025; 93005; 93041; 94760; 96374; 96375; 99285; J1200; J2930

== ENCOUNTER 2023-05-11 09:25 | Emergency (ER) | payer BC ==
[~2023-05-11] VITALS: Ht 162.6 cm; Wt 93.2 kg
[2023-05-11 09:26] VITALS: TEMP 97.7
[2023-05-11] MEDS ORDERED: SPIR50TA4 (09:36)
[2023-05-11] MEDS ORDERED: PHEN30CA21 (09:36)
[2023-05-11] MEDS ORDERED: BUPR300T92 (09:36)
[2023-05-11 10:14] LABS: BASO # 0.1 10^3/uL (0.0-0.2); BASO % 0.8 % (0.0-1.0); EOS # 0.1 10^3/uL (0.0-0.5); EOS % 1.2 % (0.0-3.0); HEMATOCRIT 41.6 % (36.0-47.0); HEMOGLOBIN 13.5 g/dl (12.0-15.5); LYMPH # 1.8 10^3/uL (1.5-5.0); LYMPH % 27.6 % (24.0-44.0); MEAN CORPUSCULAR HEMOGLOBIN 28.7 pg (27.0-33.0); MEAN CORPUSCULAR HGB CONC 32.5 g/dl (32.0-36.5); MEAN CORPUSCULAR VOLUME 88.3 fl (80.0-96.0); MONO # 0.5 10^3/uL (0.0-0.8); MONO % 7.5 % (2.0-8.0); NEUTROPHILS % 62.1 % (36.0-66.0); PLATELET COUNT, AUTOMATED 340 10^3/uL (150-450); RED BLOOD COUNT 4.71 10^6/uL (4.00-5.40); WHITE BLOOD COUNT 6.4 10^3/uL (4.0-10.0)
[2023-05-11 10:48] LABS: BLOOD UREA NITROGEN 16 MG/DL (9-23); CALCIUM LEVEL 8.6 MG/DL (8.5-10.1); CARBON DIOXIDE LEVEL 26 MMOL/L (20-31); CHLORIDE LEVEL 105 MMOL/L (98-107); CK-MB VALUE MASS < 1.0 NG/ML (<3.6); CREATININE FOR GFR 0.91 MG/DL (0.55-1.30); GLOMERULAR FILTRATION RATE > 60.0 (>51); GLUCOSE, FASTING 125 MG/DL (60-100); POTASSIUM SERUM 4.4 MMOL/L (3.5-5.1); SODIUM LEVEL 139 MMOL/L (136-145)
[2023-05-11 10:51] LABS: CPK CREATINE PHOSPHOKINASE 120 U/L (34-145); MB/CK RELATIVE INDEX 0.83 (< OR =4)
[2023-05-11 12:30] VITALS: BP 128/66
[2023-05-11 12:45] VITALS: O2SAT 96
== END 2023-05-11 12:56 | disposition home or self-care (01) ==
LOC: M ED 09:25
DX: T50.995A Adverse effect of other drugs, medicaments and biological substances, initial encounter (principal); R07.9 Chest pain, unspecified; I25.2 Old myocardial infarction; J45.909 Unspecified asthma, uncomplicated; F10.10 Alcohol abuse, uncomplicated; K21.9 Gastro-esophageal reflux disease without esophagitis; F32.A Depression, unspecified; Z88.0 Allergy status to penicillin; Z88.2 Allergy status to sulfonamides; Z88.6 Allergy status to analgesic agent; Z91.041 Radiographic dye allergy status; Z91.013 Allergy to seafood; Z79.899 Other long term (current) drug therapy

== ENCOUNTER → 2023-05-23 | Outpatient (REF) | payer BC ==
[~2023-05-23] MED LIST changes: +BUPR300T92; +PHEN30CA21; +SPIR50TA4
[2023-05-23 19:49] LABS: CORTISOL AM 7.3 UG/DL (4.3-22.4)
== END ==
LOC: M LAB REF 16:46
PROVIDERS: ATTEND Internal Medicine
DX: R53.83 Other fatigue (principal); E66.01 Morbid (severe) obesity due to excess calories

== ENCOUNTER → 2023-07-12 | Outpatient (CLI) | payer BC | LOC: M WUC 15:12 | PROVIDERS: ATTEND Internal Medicine | DX: R05.9 Cough, unspecified (principal); R06.02 Shortness of breath; J90 Pleural effusion, not elsewhere classified; J98.11 Atelectasis ==

== ENCOUNTER 2023-09-14 12:42 | Emergency (ER) | payer BC ==
[~2023-09-14] VITALS: Ht 162.6 cm; Wt 104.1 kg
[~2023-09-14 12:42] MED LIST changes: -ISOVUE-370 76% 100ML VIAL As Ordered ONE; -METR-265 PO
[2023-09-14 14:00] LABS: BASO # 0.1 10^3/uL (0.0-0.2); BASO % 0.6 % (0.0-1.0); EOS # 0.2 10^3/uL (0.0-0.5); HEMATOCRIT 45.1 % (36.0-47.0); HEMOGLOBIN 14.5 g/dl (12.0-15.5); LYMPH # 2.9 10^3/uL (1.5-5.0); LYMPH % 25.4 % (24.0-44.0); MEAN CORPUSCULAR HEMOGLOBIN 28.3 pg (27.0-33.0); MEAN CORPUSCULAR HGB CONC 32.2 g/dl (32.0-36.5); MEAN CORPUSCULAR VOLUME 88.1 fl (80.0-96.0); MONO # 1.2 10^3/uL (0.0-0.8); NEUTROPHILS # 6.8 10^3/uL (1.5-8.5); NEUTROPHILS % 60.6 % (36.0-66.0); PLATELET COUNT, AUTOMATED 402 10^3/uL (150-450); RED BLOOD COUNT 5.12 10^6/uL (4.00-5.40); WHITE BLOOD COUNT 11.2 10^3/uL (4.0-10.0)
[2023-09-14 14:11] LABS: LIPASE 40 U/L (12-53)
[2023-09-14 14:14] LABS: ALBUMIN 3.8 G/DL (3.2-5.2); ALKALINE PHOSPHATASE 82 U/L (46-116); ALT/SGPT 24 U/L (7.0-40); AST/SGOT 15 U/L (<34); BILIRUBIN,DIRECT 0.1 MG/DL (<0.4); BILIRUBIN,TOTAL 0.4 MG/DL (0.3-1.2); BLOOD UREA NITROGEN 14 MG/DL (9-23); CALCIUM LEVEL 9.7 MG/DL (8.5-10.1); CARBON DIOXIDE LEVEL 30 MMOL/L (20-31); CHLORIDE LEVEL 104 MMOL/L (98-107); CREATININE FOR GFR 0.97 MG/DL (0.55-1.30); GLOMERULAR FILTRATION RATE > 60.0 (>51); GLUCOSE, FASTING 112 MG/DL (60-100); POTASSIUM SERUM 4.2 MMOL/L (3.5-5.1); SODIUM LEVEL 141 MMOL/L (136-145); TOTAL PROTEIN 7.2 G/DL (5.7-8.2)
[2023-09-14 14:22] LABS: HCG, SERUM QUALITATIVE NEGATIVE (NEGATIVE)
[2023-09-14] MEDS ORDERED: methylPREDNISolone 125MG 2ML VIAL IV ONE (14:55)
[2023-09-14] MEDS ORDERED: metroNIDAZOLE (FLAGYL) 500MG TABLET PO ONE (16:20)
[2023-09-14] MEDS ORDERED: CIPROFLOXACIN 500MG TABLET PO ONE (16:20)
[2023-09-14 16:26] VITALS: BP 115/63; TEMP 97.8; O2SAT 95
[2023-09-14] MEDS ORDERED: METR-265 PO (16:34)
[2023-09-14] MEDS ORDERED: CIPR-249 PO (16:34)
== END 2023-09-14 16:41 | disposition home or self-care (01) ==
LOC: M ED 12:42
DX: K57.30 Diverticulosis of large intestine without perforation or abscess without bleeding (principal); F10.10 Alcohol abuse, uncomplicated; E27.9 Disorder of adrenal gland, unspecified; K42.9 Umbilical hernia without obstruction or gangrene; Z87.442 Personal history of urinary calculi; Z91.041 Radiographic dye allergy status; Z88.0 Allergy status to penicillin; Z88.2 Allergy status to sulfonamides; Z88.6 Allergy status to analgesic agent; Z91.013 Allergy to seafood; Z79.83 Long term (current) use of bisphosphonates; Z79.2 Long term (current) use of antibiotics; Z79.899 Other long term (current) drug therapy
CPT/HCPCS: 36415; 74177; 80048; 80076; 81001; 83690; 84703; 85025; 87088; 96374; 99284; J2930

== ENCOUNTER → 2023-09-14 | Outpatient (CLI) | payer BC ==
[~2023-09-14] MED LIST changes: +ISOVUE-370 76% 100ML VIAL As Ordered ONE; +METR-265 PO
== END ==
LOC: M RAD 07:30
PROVIDERS: ATTEND Internal Medicine
DX: R10.9 Unspecified abdominal pain (principal)
CPT/HCPCS: 76705; Q9967

== ENCOUNTER → 2023-10-18 | Outpatient (REF) | payer BC ==
[~2023-10-18] MED LIST changes: +METR-265 PO
== END ==
LOC: M LAB REF 13:25
PROVIDERS: ATTEND Internal Medicine
DX: E66.01 Morbid (severe) obesity due to excess calories (principal); R53.83 Other fatigue

== ENCOUNTER → 2023-10-27 | Outpatient (REF) | payer BC | LOC: M LAB REF 12:15 | PROVIDERS: ATTEND Internal Medicine | DX: D35.00 Benign neoplasm of unspecified adrenal gland (principal) ==

== ENCOUNTER → 2023-11-11 | Outpatient (CLI) | payer BC | LOC: M RAD 06:55 | PROVIDERS: ATTEND Internal Medicine | DX: R10.9 Unspecified abdominal pain (principal) | CPT/HCPCS: 78227; A9537 ==

== ENCOUNTER → 2023-11-16 | Outpatient (REF) | payer BC | LOC: M LAB REF 13:28 | PROVIDERS: ATTEND Internal Medicine | DX: D35.00 Benign neoplasm of unspecified adrenal gland (principal) ==

== ENCOUNTER → 2023-12-20 | Outpatient (CLI) | payer BC | LOC: M WUC 14:22 | PROVIDERS: ATTEND Nurse Practitioner Family | DX: R10.30 Lower abdominal pain, unspecified (principal); K59.00 Constipation, unspecified; R30.0 Dysuria ==

== ENCOUNTER → 2024-02-01 | Outpatient (CLI) | payer BC ==
[~2024-02-01] MED LIST changes: +BUPR-597; -BUPR300T92
[2024-02-01 14:12] LABS: BASO # 0.1 10^3/uL (0.0-0.2); BASO % 1.1 % (0.0-1.0); EOS # 0.1 10^3/uL (0.0-0.5); HEMATOCRIT 40.7 % (36.0-47.0); HEMOGLOBIN 13.2 g/dl (12.0-15.5); LYMPH # 1.7 10^3/uL (1.5-5.0); LYMPH % 24.7 % (24.0-44.0); MEAN CORPUSCULAR HEMOGLOBIN 27.8 pg (27.0-33.0); MEAN CORPUSCULAR HGB CONC 32.4 g/dl (32.0-36.5); MEAN CORPUSCULAR VOLUME 85.9 fl (80.0-96.0); MONO # 0.6 10^3/uL (0.0-0.8); MONO % 9.2 % (2.0-8.0); NEUTROPHILS # 4.4 10^3/uL (1.5-8.5); NEUTROPHILS % 62.6 % (36.0-66.0); PLATELET COUNT, AUTOMATED 333 10^3/uL (150-450); RED BLOOD COUNT 4.74 10^6/uL (4.00-5.40)
[2024-02-01 14:31] LABS: HEMOGLOBIN A1c 5.9 % (4.0-6.0)
[2024-02-01 14:32] LABS: APPEARANCE, URINE HAZY (CLEAR); BACTERIA, URINE AUTO 1+ (NEGATIVE); BILIRUBIN, URINE AUTO NEGATIVE (NEGATIVE); BLOOD, URINE BLOOD NEGATIVE (NEGATIVE); COLOR, URINE YELLOW (YELLOW); GLUCOSE, URINE (UA) AUTO NEGATIVE (NEGATIVE); KETONE, URINE AUTO NEGATIVE (NEGATIVE); LEUKOCYTE ESTERASE, URINE AUTO 3+ (NEGATIVE); MUCUS, URINE SMALL (NEGATIVE); NITRITE, URINE AUTO NEGATIVE (NEGATIVE); PROTEIN, URINE AUTO 1+ mg/dL (NEGATIVE); RBC, URINE AUTO 2 /HPF (0-3); SPECIFIC GRAVITY URINE AUTO 1.021 (1.002-1.035); SQUAMOUS EPITHELIAL CELL UR AU 6 /HPF (0-6); TRANSITIONAL EPITHELIAL AUTO 1 /HPF; UROBILINOGEN, URINE AUTO 0.2 mg/dL (0.0-2.0); WBC, URINE AUTO 17 /HPF (0-3)
[2024-02-01 14:43] LABS: ALBUMIN 3.6 G/DL (3.2-5.2); ALKALINE PHOSPHATASE 77 U/L (46-116); ALT/SGPT 27 U/L (7.0-40); AST/SGOT 15 U/L (<34); BILIRUBIN,TOTAL 0.4 MG/DL (0.3-1.2); BLOOD UREA NITROGEN 18 MG/DL (9-23); CALCIUM LEVEL 9.2 MG/DL (8.5-10.1); CARBON DIOXIDE LEVEL 27 MMOL/L (20-31); CHLORIDE LEVEL 108 MMOL/L (98-107); CHOLESTEROL LEVEL 238 MG/DL (<200); CHOLESTEROL RISK RATIO 4.57 (<5); CREATININE FOR GFR 0.87 MG/DL (0.55-1.30); GLOMERULAR FILTRATION RATE > 60.0 (>51); GLUCOSE, FASTING 99 MG/DL (60-100); LDL CHOLESTEROL 155.2 MG/DL (<100); MAGNESIUM LEVEL 1.8 MG/DL (1.8-2.4); POTASSIUM SERUM 4.3 MMOL/L (3.5-5.1); SODIUM LEVEL 142 MMOL/L (136-145); THYROID STIMULATING HORMONE 0.922 uIU/ML (0.55-4.78); TOTAL PROTEIN 6.5 G/DL (5.7-8.2); TRIGLYCERIDES LEVEL 154 MG/DL (<150)
== END ==
LOC: M WUC 09:21
PROVIDERS: ATTEND Internal Medicine
DX: K57.93 Diverticulitis of intestine, part unspecified, without perforation or abscess with bleeding (principal); E78.00 Pure hypercholesterolemia, unspecified; R73.09 Other abnormal glucose; Z68.41 Body mass index [BMI] 40.0-44.9, adult

== ENCOUNTER → 2024-05-28 | Outpatient (CLI) | payer BC ==
[2024-05-28 11:14] LABS: BASO # 0.1 10^3/uL (0.0-0.2); BASO % 1.4 % (0.0-1.0); EOS # 0.2 10^3/uL (0.0-0.5); EOS % 3.4 % (0.0-3.0); HEMATOCRIT 41.9 % (36.0-47.0); HEMOGLOBIN 13.3 g/dl (12.0-15.5); LYMPH # 2.1 10^3/uL (1.5-5.0); LYMPH % 32.1 % (24.0-44.0); MEAN CORPUSCULAR HEMOGLOBIN 27.7 pg (27.0-33.0); MEAN CORPUSCULAR HGB CONC 31.7 g/dl (32.0-36.5); MEAN CORPUSCULAR VOLUME 87.1 fl (80.0-96.0); MONO # 0.6 10^3/uL (0.0-0.8); MONO % 9.5 % (2.0-8.0); NEUTROPHILS # 3.4 10^3/uL (1.5-8.5); NEUTROPHILS % 53.1 % (36.0-66.0); PLATELET COUNT, AUTOMATED 380 10^3/uL (150-450); RED BLOOD COUNT 4.81 10^6/uL (4.00-5.40); WHITE BLOOD COUNT 6.4 10^3/uL (4.0-10.0)
[2024-05-28 11:30] LABS: HEMOGLOBIN A1c 5.8 % (4.0-6.0)
[2024-05-28 11:50] LABS: ALBUMIN 3.4 G/DL (3.2-5.2); ALKALINE PHOSPHATASE 83 U/L (46-116); ALT/SGPT 25 U/L (7.0-40); AST/SGOT 14 U/L (<34); BILIRUBIN,TOTAL 0.4 MG/DL (0.3-1.2); BLOOD UREA NITROGEN 16 MG/DL (9-23); CARBON DIOXIDE LEVEL 30 MMOL/L (20-31); CHLORIDE LEVEL 108 MMOL/L (98-107); CHOLESTEROL LEVEL 215 MG/DL (<200); CHOLESTEROL RISK RATIO 4.07 (<5); CREATININE FOR GFR 0.82 MG/DL (0.55-1.30); GLOMERULAR FILTRATION RATE > 60.0 (>51); GLUCOSE, FASTING 121 MG/DL (60-100); HDL CHOLESTEROL 52.8 MG/DL (>40); LDL CHOLESTEROL 136.2 MG/DL (<100); MAGNESIUM LEVEL 1.9 MG/DL (1.8-2.4); NON-HDL-C 162.2 MG/DL; POTASSIUM SERUM 4.1 MMOL/L (3.5-5.1); SODIUM LEVEL 141 MMOL/L (136-145); TOTAL PROTEIN 6.7 G/DL (5.7-8.2); TRIGLYCERIDES LEVEL 130 MG/DL (<150)
[2024-05-28 11:51] LABS: THYROID STIMULATING HORMONE 0.849 uIU/ML (0.55-4.78)
== END ==
LOC: M WUC 08:39
PROVIDERS: ATTEND Internal Medicine
DX: K21.9 Gastro-esophageal reflux disease without esophagitis (principal); E78.00 Pure hypercholesterolemia, unspecified; F41.9 Anxiety disorder, unspecified; K57.12 Diverticulitis of small intestine without perforation or abscess without bleeding; R73.09 Other abnormal glucose

== ENCOUNTER → 2024-06-01 | Outpatient (CLI) | payer BC | LOC: M WUC 08:06 | PROVIDERS: ATTEND Internal Medicine Endocrinology, Diabetes & Metabolism | DX: E27.0 Other adrenocortical overactivity (principal); E66.9 Obesity, unspecified | CPT/HCPCS: 36415; 82533; G0480 ==

== ENCOUNTER → 2024-08-20 | Outpatient (CLI) | payer OTHER, SELFPAY ==
[~2024-08-20] MED LIST changes: -ADV100INH INH; +ADVA1AER8 INH; -LEVO750T14 PO; +LEVO75TAB PO; +OMEP-611 PO; -OMEP20TA2 PO
== END ==
LOC: M CARPUL 10:38
PROVIDERS: ATTEND Internal Medicine
DX: R00.0 Tachycardia, unspecified (principal)

== ENCOUNTER → 2024-09-14 | Outpatient (CLI) | payer OTHER ==
[2024-09-14 10:14] LABS: BASO # 0.1 10^3/uL (0.0-0.2); BASO % 1.2 % (0.0-1.0); EOS # 0.3 10^3/uL (0.0-0.5); EOS % 3.4 % (0.0-3.0); HEMATOCRIT 41.9 % (36.0-47.0); HEMOGLOBIN 13.2 g/dl (12.0-15.5); LYMPH # 1.8 10^3/uL (1.5-5.0); LYMPH % 24.2 % (24.0-44.0); MEAN CORPUSCULAR HEMOGLOBIN 27.2 pg (27.0-33.0); MEAN CORPUSCULAR HGB CONC 31.5 g/dl (32.0-36.5); MEAN CORPUSCULAR VOLUME 86.2 fl (80.0-96.0); MONO # 0.6 10^3/uL (0.0-0.8); MONO % 8.5 % (2.0-8.0); NEUTROPHILS # 4.6 10^3/uL (1.5-8.5); PLATELET COUNT, AUTOMATED 387 10^3/uL (150-450); RED BLOOD COUNT 4.86 10^6/uL (4.00-5.40); WHITE BLOOD COUNT 7.4 10^3/uL (4.0-10.0)
[2024-09-14 10:20] LABS: ALBUMIN 3.5 G/DL (3.2-5.2); ALKALINE PHOSPHATASE 92 U/L (35-104); ALT/SGPT 27 U/L (7.0-40); AST/SGOT 17 U/L (<34); BILIRUBIN,TOTAL 0.3 MG/DL (0.3-1.2); BLOOD UREA NITROGEN 16 MG/DL (9-23); CALCIUM LEVEL 9.1 MG/DL (8.5-10.1); CARBON DIOXIDE LEVEL 30 MMOL/L (20-31); CHLORIDE LEVEL 105 MMOL/L (98-107); CHOLESTEROL LEVEL 245 MG/DL (<200); CHOLESTEROL RISK RATIO 4.74 (<5); CREATININE FOR GFR 0.85 MG/DL (0.55-1.30); GLOMERULAR FILTRATION RATE > 60.0 (>51); GLUCOSE, FASTING 136 MG/DL (60-100); HDL CHOLESTEROL 51.6 MG/DL (>40); LDL CHOLESTEROL 166.6 MG/DL (<100); NON-HDL-C 193.4 MG/DL; POTASSIUM SERUM 4.2 MMOL/L (3.5-5.1); SODIUM LEVEL 143 MMOL/L (136-145); TOTAL PROTEIN 7.2 G/DL (5.7-8.2); TRIGLYCERIDES LEVEL 134 MG/DL (<150)
[2024-09-14 11:01] LABS: THYROID STIMULATING HORMONE 0.658 uIU/ML (0.55-4.78)
== END ==
LOC: M WUC 08:08
PROVIDERS: ATTEND Internal Medicine
DX: F41.9 Anxiety disorder, unspecified (principal); K21.9 Gastro-esophageal reflux disease without esophagitis

== ENCOUNTER 2024-10-01 15:56 | Emergency (ER) | payer OTHER ==
[~2024-10-01] VITALS: Ht 162.6 cm; Wt 105.3 kg
[~2024-10-01 15:56] MED LIST changes: -MM S100C PO
[2024-10-01 17:15] LABS: BASO # 0.1 10^3/uL (0.0-0.2); BASO % 0.9 % (0.0-1.0); EOS # 0.2 10^3/uL (0.0-0.5); EOS % 2.6 % (0.0-3.0); HEMATOCRIT 43.6 % (36.0-47.0); HEMOGLOBIN 13.8 g/dl (12.0-15.5); LYMPH # 2.7 10^3/uL (1.5-5.0); LYMPH % 30.5 % (24.0-44.0); MEAN CORPUSCULAR HEMOGLOBIN 27.4 pg (27.0-33.0); MEAN CORPUSCULAR HGB CONC 31.7 g/dl (32.0-36.5); MEAN CORPUSCULAR VOLUME 86.7 fl (80.0-96.0); MONO # 0.8 10^3/uL (0.0-0.8); MONO % 9.1 % (2.0-8.0); NEUTROPHILS # 4.9 10^3/uL (1.5-8.5); NEUTROPHILS % 56.6 % (36.0-66.0); PLATELET COUNT, AUTOMATED 362 10^3/uL (150-450); RED BLOOD COUNT 5.03 10^6/uL (4.00-5.40); WHITE BLOOD COUNT 8.7 10^3/uL (4.0-10.0)
[2024-10-01 17:45] LABS: LIPASE 43 U/L (12-53)
[2024-10-01 17:48] LABS: ALBUMIN 3.8 G/DL (3.2-5.2); ALKALINE PHOSPHATASE 91 U/L (35-104); ALT/SGPT 28 U/L (7.0-40); AST/SGOT 18 U/L (<34); BILIRUBIN,DIRECT < 0.1 MG/DL (<0.4); BILIRUBIN,TOTAL 0.4 MG/DL (0.3-1.2); BLOOD UREA NITROGEN 15 MG/DL (9-23); CALCIUM LEVEL 9.7 MG/DL (8.5-10.1); CARBON DIOXIDE LEVEL 28 MMOL/L (20-31); CHLORIDE LEVEL 106 MMOL/L (98-107); CREATININE FOR GFR 0.79 MG/DL (0.55-1.30); GLOMERULAR FILTRATION RATE > 60.0 (>51); GLUCOSE, FASTING 82 MG/DL (60-100); POTASSIUM SERUM 3.9 MMOL/L (3.5-5.1); SODIUM LEVEL 145 MMOL/L (136-145); TOTAL PROTEIN 7.4 G/DL (5.7-8.2)
[2024-10-01 23:48] LABS: CK-MB VALUE MASS < 1.0 NG/ML (<3.6); MAGNESIUM LEVEL 1.9 MG/DL (1.8-2.4)
[2024-10-01 23:49] LABS: C REACTIVE PROTEIN QUANTITATIV 0.69 MG/DL (<1.0); CPK CREATINE PHOSPHOKINASE 128 U/L (34-145); MB/CK RELATIVE INDEX 0.78 (< OR =4)
[2024-10-01] MEDS: diphenhydrAMINE 50MG/ML VIAL IV ONE (23:50)
[2024-10-01] MEDS: methylPREDNISolone 125MG 2ML VIAL IV ONE (23:50)
[2024-10-01 23:54] LABS: ERYTHROCYTE SEDIMENTATION RATE 34 mm/hr (0-30)
[2024-10-01] MEDS ORDERED: ISOVUE-370 76% 100ML VIAL As Ordered ONE (23:56)
[2024-10-02] MEDS ORDERED: MM S100C PO (01:35)
[2024-10-02] MEDS: ACETAMINOPHEN *IV* 1,000 MG in IV 1 EA IV ONE (01:45)
[2024-10-02] MEDS: LevoFLOXacin 500 MG TABLET PO ONE (01:51)
[2024-10-02 04:04] VITALS: BP 128/72; TEMP 98; O2SAT 99
== END 2024-10-02 04:05 | disposition home or self-care (01) ==
LOC: M ED 15:56
DX: K57.30 Diverticulosis of large intestine without perforation or abscess without bleeding (principal); D35.00 Benign neoplasm of unspecified adrenal gland; K51.50 Left sided colitis without complications; K76.89 Other specified diseases of liver; J98.11 Atelectasis; E66.9 Obesity, unspecified; M54.50 Low back pain, unspecified; F32.A Depression, unspecified; J45.909 Unspecified asthma, uncomplicated; F10.10 Alcohol abuse, uncomplicated; K21.9 Gastro-esophageal reflux disease without esophagitis; Z90.89 Acquired absence of other organs; Z87.442 Personal history of urinary calculi; Z91.041 Radiographic dye allergy status; Z88.0 Allergy status to penicillin; Z88.2 Allergy status to sulfonamides; Z88.6 Allergy status to analgesic agent; Z88.8 Allergy status to other drugs, medicaments and biological substances; Z91.013 Allergy to seafood
CPT/HCPCS: 74177; 80048; 80076; 82550; 82553; 83605; 83690; 83735; 84484; 85025; 85652; 86140; 87040; 93005; 96374; 96375; 99284; J0131; J1200; J2919; Q9967

== ENCOUNTER → 2024-10-01 | Outpatient (CLI) | payer OTHER ==
[~2024-10-01] MED LIST changes: +MM S100C PO
== END ==
LOC: M PLAIMG 13:08
PROVIDERS: ATTEND Surgery
DX: R25.2 Cramp and spasm (principal); R10.30 Lower abdominal pain, unspecified; Z53.9 Procedure and treatment not carried out, unspecified reason

== ENCOUNTER → 2025-01-02 | Outpatient (CLI) | payer OTHER ==
[~2025-01-02] MED LIST changes: -BUPR-597; +BUPR-766; -FLOM0.4C39 PO; +MM S100C PO; +TAMS-18 PO
== END ==
LOC: M WUC 08:19
PROVIDERS: ATTEND Internal Medicine Endocrinology, Diabetes & Metabolism
DX: E27.9 Disorder of adrenal gland, unspecified (principal)
CPT/HCPCS: 36415; 82533; G0480

== ENCOUNTER → 2025-04-05 | Outpatient (CLI) | payer OTHER ==
[2025-04-05 12:09] LABS: ALT/SGPT 34.0 U/L (7.0-40); APPEARANCE, URINE CLOUDY (CLEAR); AST/SGOT 24.0 U/L (<34); BACTERIA, URINE AUTO NEGATIVE (NEGATIVE); BASO # 0.1 10^3/uL (0.0-0.2); BASO % 1.3 % (0.0-1.0); BILIRUBIN, URINE AUTO NEGATIVE (NEGATIVE); BLOOD, URINE BLOOD NEGATIVE (NEGATIVE); CALCIUM LEVEL 8.8 MG/DL (8.5-10.1); CARBON DIOXIDE LEVEL 31.0 MMOL/L (20-31); CHLORIDE LEVEL 106.0 MMOL/L (98-107); CHOLESTEROL LEVEL 230.0 MG/DL (<200); CHOLESTEROL RISK RATIO 4.52 (<5); CREATININE FOR GFR 0.85 MG/DL (0.55-1.30); EOS # 0.2 10^3/uL (0.0-0.5); EOS % 3.4 % (0.0-3.0); GLOMERULAR FILTRATION RATE 78.9 (>51); GLUCOSE, URINE (UA) AUTO NEGATIVE (NEGATIVE); KETONE, URINE AUTO NEGATIVE (NEGATIVE); LDL CHOLESTEROL 141.2 MG/DL (<100); LEUKOCYTE ESTERASE, URINE AUTO 3+ (NEGATIVE); LYMPH # 2.2 10^3/uL (1.5-5.0); LYMPH % 33.8 % (24.0-44.0); MONO # 0.5 10^3/uL (0.0-0.8); MONO % 8.4 % (2.0-8.0); MUCUS, URINE SMALL (NEGATIVE); NEUTROPHILS # 3.4 10^3/uL (1.5-8.5); NEUTROPHILS % 52.8 % (36.0-66.0); NITRITE, URINE AUTO NEGATIVE (NEGATIVE); NON-HDL-C 179.2 MG/DL; PLATELET COUNT, AUTOMATED 331 10^3/uL (150-450); POTASSIUM SERUM 4.0 MMOL/L (3.5-5.1); PROTEIN, URINE AUTO 1+ mg/dL (NEGATIVE); RBC, URINE AUTO 1 /HPF (0-3); SODIUM LEVEL 146.0 MMOL/L (136-145); SPECIFIC GRAVITY URINE AUTO 1.021 (1.002-1.035); SQUAMOUS EPITHELIAL CELL UR AU 26 /HPF (0-6); TRIGLYCERIDES LEVEL 190.0 MG/DL (<150); UROBILINOGEN, URINE AUTO 0.2 mg/dL (0.0-2.0); WBC, URINE AUTO 25 /HPF (0-3)
[2025-04-05 12:50] LABS: ESTIMATED AVERAGE GLUCOSE 148.0 MG/DL (60-110)
== END ==
LOC: M WUC 09:31
PROVIDERS: ATTEND Internal Medicine
DX: R00.0 Tachycardia, unspecified (principal); E78.00 Pure hypercholesterolemia, unspecified; F41.9 Anxiety disorder, unspecified; R73.09 Other abnormal glucose

== ENCOUNTER → 2025-04-24 | Outpatient (CLI) | payer OTHER | LOC: M WUC 11:56 | PROVIDERS: ATTEND Internal Medicine | DX: J45.909 Unspecified asthma, uncomplicated (principal) ==

== ENCOUNTER → 2025-05-09 | Outpatient (CLI) | payer OTHER ==
[2025-05-09 18:29] LABS: BASO # 0.0 10^3/uL (0.0-0.2); BASO % 0.4 % (0.0-1.0); EOS # 0.0 10^3/uL (0.0-0.5); EOS % 0.1 % (0.0-3.0); LYMPH # 0.9 10^3/uL (1.5-5.0); LYMPH % 11.5 % (24.0-44.0); MONO # 0.2 10^3/uL (0.0-0.8); MONO % 2.4 % (2.0-8.0); NEUTROPHILS # 6.8 10^3/uL (1.5-8.5); NEUTROPHILS % 85.2 % (36.0-66.0); PLATELET COUNT, AUTOMATED 378 10^3/uL (150-450)
== END ==
LOC: M WUC 15:46
PROVIDERS: ATTEND Nurse Practitioner Family
DX: M79.672 Pain in left foot (principal)

== ENCOUNTER → 2025-06-18 | Outpatient (CLI) | payer OTHER ==
[2025-06-18 12:53] LABS: CHOLESTEROL LEVEL 238.0 MG/DL (<200); CHOLESTEROL RISK RATIO 4.33 (<5); GLUCOSE,RANDOM 122.0 MG/DL (LESS THAN 200); LDL CHOLESTEROL 158.3 MG/DL (<100); NON-HDL-C 183.1 MG/DL; TRIGLYCERIDES LEVEL 124.0 MG/DL (<150)
[2025-06-18 14:26] LABS: ESTIMATED AVERAGE GLUCOSE 134.0 MG/DL (60-110)
== END ==
LOC: M WUC 09:26
PROVIDERS: ATTEND Internal Medicine
DX: R73.09 Other abnormal glucose (principal); E78.00 Pure hypercholesterolemia, unspecified; Z79.899 Other long term (current) drug therapy

== ENCOUNTER → 2025-07-31 | Outpatient (CLI) | payer OTHER | LOC: M WUC 08:23 | PROVIDERS: ATTEND Internal Medicine Endocrinology, Diabetes & Metabolism | DX: E27.0 Other adrenocortical overactivity (principal) ==

== ENCOUNTER → 2025-08-20 | Outpatient (REF) | payer OTHER | LOC: M LAB REF 16:58 | DX: R30.0 Dysuria (principal) ==

== ENCOUNTER → 2025-09-02 | Outpatient (CLI) | payer OTHER | LOC: M SLEEP HO 08-26 10:42 | PROVIDERS: ATTEND Physician Assistant | DX: G47.30 Sleep apnea, unspecified (principal); R06.83 Snoring ==